=== PATIENT | female | born 1965 | race Caucasian/White ===

== ENCOUNTER 2017-02-04 23:50 | Emergency (ER) | payer MEDICARE | END 2017-02-05 01:23 | disposition home or self-care (01) | LOC: ER1 23:50 | DX: Z48.01 Encounter for change or removal of surgical wound dressing (principal); I10 Essential (primary) hypertension; I25.2 Old myocardial infarction; Z88.8 Allergy status to other drugs, medicaments and biological substances | CPT/HCPCS: 99283 ==